=== PATIENT | female | born 1950 | race Caucasian/White ===

== ENCOUNTER 2017-08-19 15:59 | Emergency (ER) | payer MEDICARE ==
[2017-08-19 16:17] VITALS: BP 127/74; PULSE 71; RESP 18; TEMP 98.3; O2SAT 97
--- NOTE | 2017-08-19 17:33 | ED PDOC ---
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 Pelvic pain repeated again yesterday morning 6:30 am and woke her up, alleviated spontaneously, but persists discomfort w/o pain associated with vaginal dryness chronic due to menopause. She denies dysuria, fever, vaginal bleeding, vaginal discharge, flank pain, nausea, vomiting, diarrhea, chest pain, SOB, headache, dizziness. Menopause at age 55 PMD: Sayda Powers <iNnfa Lau - Last Filed: 08/19/17 17:47> <Rosa Corbett - Last Filed: 08/19/17 20:58> Time Seen by Provider: 08/19/17 16:44 Chief Complaint (Nursing): Female Genitourinary Past Medical History Vital Signs: Last Vital Signs Temp 98.3 F 08/19/17 16:14 Pulse 71 08/19/17 16:14 Resp 18 08/19/17 16:14 BP 127/74 08/19/17 16:14 Pulse Ox 97 08/19/17 16:14 <Ninfa Lau - Last Filed: 08/19/17 17:47> Vital Signs: Last Vital Signs Temp 98.3 F 08/19/17 16:14 Pulse 71 08/19/17 16:14 Resp 18 08/19/17 16:14 BP 127/74 08/19/17 16:14 Pulse Ox 97 08/19/17 17:50 - Family History Family History: States: Other Other Family History: Cancer <Rosa Corbett - Last Filed: 08/19/17 20:58> - Home Medications Home Medications: Ambulatory Orders Medication Instructions Recorded Oxycodone HCl/Acetaminophen 1 tab PO Q6 PRN #12 tab 03/05/15 [Percocet 325 mg-5 mg] Phenazopyridine [Pyridium] 200 mg PO BID PRN #20 tab 08/19/17 - Allergies Allergies/Adverse Reactions: Allergies Allergy/AdvReac Type Severity Reaction Status Date / Time No Known Allergies Allergy Verified 08/19/17 16:14 Review of Systems Constitutional: Negative for: Fever ENT: Negative for: Ear Pain Cardiovascular: Negative for: Chest Pain, Palpitations Respiratory: Negative for: Cough, Shortness of Breath Gastrointestinal: Negative for: Nausea, Vomiting Genitourinary Female: Positive for: Pelvic Pain <JudiDglamar - Last Filed: 08/19/17 17:47> Physical Exam - Physical Exam Appears: Positive for: No Acute Distress Head Exam: Positive for: ATRAUMATIC, NORMOCEPHALIC Skin: Positive for: Normal Color Eye Exam: Positive for: Normal appearance Neck: Positive for: Normal Cardiovascular/Chest: Positive for: Regular Rate, Rhythm. Negative for: Murmur Respiratory: Positive for: Normal Breath Sounds. Negative for: Crackles, Rales , Rhonchi Gastrointestinal/Abdominal: Positive for: Bowel Sounds, Soft. Negative for: Tenderness, Guarding, Rebound Pelvic Exam: Positive for: External Exam Normal, No Masses. Negative for: Active Bleeding, Discharge, Lesions, Mass Back: Positive for: Normal Inspection. Negative for: L CVA Tenderness, R CVA Tenderness Extremity: Positive for: Normal ROM. Negative for: Tenderness, Pedal Edema Neurologic/Psych: Positive for: Alert, Oriented <JudiDgcarmelitaoziel - Last Filed: 08/19/17 17:47> - ECG O2 Sat by Pulse Oximetry: 97 <JudiDgcarmelitaoziel - Last Filed: 08/19/17 17:47> Medical Decision Making Medical Decision Makin: 20 Initial impression Pelvic pain Diferential Cystitis, Ovary cyst, Pelvic adhesions, Uterine fibroids,Ovary tumor Plan UA TV US <JudiDgcarmelitaoziel - Last Filed: 08/19/17 17:47> Medical Decision Making: EXAM: US Pelvis, Transvaginal CLINICAL HISTORY: 67 years old, female; Pain; Pelvic pain; Prior surgery; Surgery date: 6+ months ; Surgery type: Oophorectomy rt; Additional info: Episodic pelvic pain TECHNIQUE: Real-time transvaginal pelvic ultrasound (complete) with image documentation. Transvaginal imaging was used for better evaluation of the endometrium and adnexa. COMPARISON: US - TRANSVAGINAL 2015-08-18 16:50 FINDINGS: Uterus/cervix: There is myometrial calcification in the anterior wall of the uterine body measuring 4.8 mm. A second collection is present measuring 7.3 mm x 4.9 mm Normal endometrial stripe thickness 1.8 mm. No myometrial mass. The uterus measures 5.7 cm x 2.4 cm x 3.1 cm. Right ovary: Surgically absent Left ovary: Unremarkable. No mass. Normal blood flow. 1.1 cm x 0.8 cm x 1 cm Free fluid: No free fluid. IMPRESSION: 1. Calcified densities anterior wall of the uterine body 2. RIGHT ovary has been resected. 3. Otherwise negative pelvic sonogram Thank you for allowing us to participate in the care of your patient. Dictated and Authenticated by: Kem Parker MD 08/19/2017 8:24 PM Eastern Time ([place] & [place]) UA with 5 RBCs. No emergently significant abnormalities DW pt findings. 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 Stable for DC <Rosa Corbett - Last Filed: 08/19/17 20:58> Disposition <Ninfa Lau - Last Filed: 08/19/17 17:47> Counseled Patient/Family Regarding: Studies Performed, Diagnosis, Need For Followup - Disposition Disposition: Routine/Home Disposition Time: 20:41 <Rosa Corbett - Last Filed: 08/19/17 20:58> - Clinical Impression Clinical Impression: Genitourinary Pain - Disposition Referrals: Sayda Powers MD [Medical Doctor] - (CALL YOUR DOCTOR TOMORROW FOR FOLLOW UP APPOINTMENT. YOU MAY NEED A REFERRAL TO CODING QUALITY COORDINATOR FOR FURTHER EVALUATION.) Tl Edouard MD [Staff Provider] - (CODING QUALITY COORDINATOR ) Condition: STABLE Prescriptions: Phenazopyridine [Pyridium] 200 mg PO BID PRN #20 tab PRN Reason: bladder pain Instructions: Acute Pelvic Pain
[2017-08-19 17:58] LABS: URINE BACTERIA RARE (<OCC); URINE BILIRUBIN NEGATIVE (NEGATIVE); URINE BLOOD SMALL (NEGATIVE); URINE CLARITY CLEAR (Clear); URINE COLOR YELLOW (YELLOW); URINE GLUCOSE (UA) NEG (Normal); URINE LEUKOCYTE ESTERASE NEG Leu/uL (Negative); URINE NITRATE NEGATIVE (NEGATIVE); URINE PROTEIN NEGATIVE (NEGATIVE); URINE UROBILINOGEN 0.2-1.0 mg/dL (0.2-1.0)
--- NOTE | 2017-08-20 13:12 | US ---
HISTORY: episodic pelvic pain COMPARISON: 08/18/2015 TECHNIQUE: Transvaginal FINDINGS: UTERUS: Measures 5.8 x 3.1 x 2.4 cm. Normal in size and appearance. The previously referenced fibroid with calcification is similar. This fibroid measures 7 x 9 x 5 mm calcifications approximately 5 x 7 by 1 mm elsewhere there are calcifications in the uterus is well. ENDOMETRIUM: Measures 1.8 mm in diameter. Unremarkable. CERVIX: No cervical abnormality identified. RIGHT OVARY: Nonvisualized compatible with the prior right oophorectomy history LEFT OVARY: Measures 1.1 x 1.1 x 0.9 cm. No solid mass. Normal flow. FREE FLUID: No significant free fluid noted. OTHER FINDINGS: None. IMPRESSION: Status post right oophorectomy. Unremarkable appearing left ovary No endometrial pathology noted. Similar intrauterine fibroid with calcification
== END 2017-08-19 21:03 | disposition home or self-care (01) ==
LOC: H.ER 15:59
DX: R10.2 Pelvic and perineal pain (principal); N83.209 Unspecified ovarian cyst, unspecified side; N73.6 Female pelvic peritoneal adhesions (postinfective)

== ENCOUNTER 2018-04-22 15:22 | Emergency (ER) | payer MEDICARE, MEDICAID ==
[2018-04-22 19:01] VITALS: BP 122/78; PULSE 78; RESP 18; TEMP 98; O2SAT 100
--- NOTE | 2018-04-25 03:42 | ED PDOC ---
HPI: Back Time Seen by Provider: 04/22/18 16:14 Chief Complaint (Nursing): Back Pain Additional Complaint(s): 68 year old female with no significant past medical history presents to the emergency department complaining of bilateral neck pain and upper back pain x 1.5 weeks. Patient has been sleeping on a couch with her head up on the armrest over the last few weeks and believe this is what caused the pain. Patient visited her chiropractor a few days ago without relief. Patient has not taken any medication for pain. Denies h/o DVT/PE. Denies trauma, numbness, paresthesias, fever, chills, headache, eye pain, shortness of breath, cough, hemoptysis, calf swelling, calf pain, chest pain. Past Medical History Reviewed: Historical Data, Nursing Documentation, Vital Signs Vital Signs: Last Vital Signs Temp 98 F 04/22/18 18:45 Pulse 78 04/22/18 18:45 Resp 18 04/22/18 18:45 BP 122/78 04/22/18 18:45 Pulse Ox 100 04/22/18 18:45 - Family History Family History: States: No Known Family Hx - Home Medications Home Medications: Ambulatory Orders Medication Instructions Recorded Oxycodone HCl/Acetaminophen 1 tab PO Q6 PRN #12 tab 03/05/15 [Percocet 325 mg-5 mg] Phenazopyridine [Pyridium] 200 mg PO BID PRN #20 tab 08/19/17 Cyclobenzaprine [Flexeril] 5 mg PO Q8H PRN 3 Days #9 tab 04/22/18 Ibuprofen [Motrin Tab] 600 mg PO Q6H PRN #30 tab 04/22/18 - Allergies Allergies/Adverse Reactions: Allergies Allergy/AdvReac Type Severity Reaction Status Date / Time No Known Allergies Allergy Verified 04/22/18 15:37 Review of Systems ROS Statement: Except As Marked, All Systems Reviewed And Found Negative Constitutional: Negative for: Fever, Chills Eyes: Negative for: Vision Change Cardiovascular: Negative for: Chest Pain, Palpitations, Light Headedness Respiratory: Negative for: Cough, Shortness of Breath Gastrointestinal: Negative for: Nausea, Vomiting, Abdominal Pain Genitourinary Female: Negative for: Dysuria, Frequency, Incontinence, Hematuria, Vaginal Discharge, Vaginal Bleeding, Pelvic Pain, Rash Musculoskeletal: Positive for: Neck Pain, Back Pain. Negative for: Shoulder Pain, Arm Pain, Hand Pain, Leg Pain, Foot Pain Skin: Negative for: Rash, Bruising Neurological: Negative for: Weakness, Numbness (paresthesias), Seizures, Headache, Dizziness Physical Exam - Reviewed Nursing Documentation Reviewed: Yes Vital Signs Reviewed: Yes - Physical Exam Appears: Positive for: Well, Non-toxic, No Acute Distress Head Exam: Positive for: ATRAUMATIC, NORMAL INSPECTION, NORMOCEPHALIC Skin: Positive for: Normal Color, Warm, DRY Eye Exam: Positive for: EOMI, Normal appearance, PERRL Neck: Positive for: Painless ROM. Negative for: Normal (tenderness bilaterally over cervical paraspinal muscles and trapezius) Cardiovascular/Chest: Positive for: Regular Rate, Rhythm Respiratory: Positive for: CNT, Normal Breath Sounds Pulses-Radial (L): 2+ Pulses-Radial (R): 2+ Back: Positive for: Normal Inspection, Other (tenderness over trapezius muscle) Extremity: Positive for: Normal ROM, Capillary Refill (<2s). Negative for: Tenderness, Deformity, Swelling Lymphatic: Positive for: Normal Exam. Negative for: Adenopathy Neurologic/Psych: Positive for: Alert, Oriented, Gait (steady). Negative for: Motor/Sensory Deficits - ECG O2 Sat by Pulse Oximetry: 100 Medical Decision Making Medical Decision Making: Initial Plan: * toradol * flexeril * reassess and disposition Pt reports large decrease in pain after medications. Plan of care discussed with pt who agrees and understands. Pt comfortable with discharge home. Pt stable for discharge. Impression: Muscle Spasm Plan: * flexeril * ibuprofen * ortho ollowup if pain persists * return to ER for new/worsening symptoms Disposition - Clinical Impression Clinical Impression: Muscle spasm - Disposition Referrals: Murray Zuñiga MD [Medical Doctor] - Disposition Time: 18:30 Condition: IMPROVED Additional Instructions: Take flexeril every 8 hours as needed for spasm, not before driving or working Take ibuprofen every 6 hours as needed for pain; with food Followup with primary doctor within 2 days Followup with orthopedics if pain persists Return to ER if symptoms persist or worsen Prescriptions: Cyclobenzaprine [Flexeril] 5 mg PO Q8H PRN 3 Days #9 tab PRN Reason: spasm Ibuprofen [Motrin Tab] 600 mg PO Q6H PRN #30 tab PRN Reason: Pain, Mild (1-3) Instructions: Muscle Spasms (DC) Forms: [employer] (Armenian), [facility] ED School/Work Excuse
== END 2018-04-22 19:00 | disposition home or self-care (01) ==
LOC: H.ER 15:22
DX: M62.830 Muscle spasm of back (principal)
CPT/HCPCS: 96372; 99282; J1885